=== PATIENT | female | born 1945 | race African-American/Black ===

== ENCOUNTER 2018-05-21 10:09 | Inpatient (IN) ==
[2018-05-21] MEDS ORDERED: PANTOPRAZOLE 40 MG VIAL IV STA (12:30)
[2018-05-21] MEDS ORDERED: HYDROmorphone 2 MG/1 ML VIAL IV STA (12:30)
[2018-05-21] MEDS ORDERED: ONDANSETRON 4 MG/2 ML VIAL IV STA (12:30)
[2018-05-21] MEDS ORDERED: SODIUM CHLORIDE 0.9% 500 ML IV STA ×2 (12:30→14:52)
[2018-05-21] MEDS ORDERED: ALUM/MAG/SIMETH/LIDO VISC 1:1 30 ML BOTTLE PO STA (12:30)
[2018-05-21 13:11] LABS: Basophils # 0.1 10*3/uL (0.0-0.2); Basophils % 0.6 % (0.0-0.8); Eosinophils # 0.2 10*3/uL (0.0-0.87); Hemoglobin 10.7 GM/DL (12.0-16.0); Immature Granulocytes % 1.3 %; Immature Granulocytes Absolute 0.11 #; Lymphocytes # 1.4 10*3/uL (1.4-4.0); Mean Corpuscular HGB Conc 30.6 GM/DL (32-36); Mean Corpuscular Hemoglobin 28 PG (27-34); Mean Corpuscular Volume 91.1 FL (87-102); Mean Platelet Volume 10.9 FL (9.6-12.0); Monocytes # 0.4 10*3/uL (0.11-0.8); Monocytes % 4.7 % (1.7-12.7); Neutrophils # 6.4 10*3/uL (1.4-7.4); Neutrophils % 75.4 % (38.7-73.9); Platelet Count 432 T/CUMM (130-400); Red Blood Count 3.84 MC/CUMM (3.8-5.5); Red Cell Distribution Width 16.2 % (9.3-17.3); White Blood Count 8.5 T/CUMM (4-12)
[2018-05-21 13:35] LABS: Alanine Aminotransferase 21 U/L (13-56); Albumin 2.6 G/DL (3.4-5.0); Alkaline Phosphatase 91 U/L (45-117); Amylase 72 U/L (25-115); Aspartate Amino Transferase 75 U/L (0-37); Bilirubin,Total < 0.39 MG/DL (0.2-1.0); Blood Urea Nitrogen 18 MG/DL (7-18); Calcium 9.2 MG/DL (8.5-10.1); Glucose 111 MG/DL (74-106); Osmolality,Calculated 277.7 MOS/KG (273-304); Potassium 4.1 MMOL/L (3.5-5.1); Sodium 138 MMOL/L (136-145); Total Protein 7.7 G/DL (6.4-8.3)
[2018-05-21 13:38] LABS: Lactic Acid 2.4 MMOL/L (0.4-2.0)
[2018-05-21] MEDS ORDERED: LACTULOSE 20 GM/30 ML UDCUP PO PRN (16:28)
[2018-05-21] MEDS ORDERED: SODIUM CHLORIDE 0.9% 1,000 ML IV ONE (16:31)
[2018-05-21] MEDS ORDERED: SODIUM PHOSPHATE ENEMA 133 ML BOTTLE RECTAL ONE (16:35)
[2018-05-21] MEDS ORDERED: GLUCAGON 1 MG VIAL IM PRN (16:36)
[2018-05-21] MEDS ORDERED: DEXTROSE 50% 25 GM/50 ML VIAL IV PRN (16:36)
[2018-05-21] MEDS ORDERED: SODIUM CHLORIDE 0.9% IV SCH (17:00)
[2018-05-21] MEDS ORDERED: GENTAMICIN IV SCH (17:00)
[2018-05-21 17:35] LABS: Apearance,Urine CLEAR (Clear); Bilirubin,Urine Negative (Negative); Blood, Urine Negative (Negative); Glucose,Urine (UA) Negative (Negative); Ketones,Urine Negative (Negative); Mucus,Urine Occasional /LPF (Occasional); Nitrite,Urine Negative (Negative); Protein,Urine Negative; RBC,Urine 1 /HPF (0-4); Squamous Epithelial Cell,Urine Occasional /HPF (0-10); Urine Color Yellow (Yellow); Urine Specific Gravity 1.042 (1.001-1.035); WBC,Urine 2 /HPF (0-6)
[2018-05-21 19:41] LABS: Lactic Acid 4.1 MMOL/L (0.4-2.0)
[2018-05-21] MEDS: VANCOMYCIN INJ 1,000 MG in SODIUM CHLORIDE 0.9% 250 ML IV SCH (20:27)
[2018-05-21] MEDS: metFORMIN 500 MG TABLET PO SCH (20:28)
[2018-05-21] MEDS: POLYETHYLENE GLYCOL POWDER 17 GM PACK PO SCH (20:28)
[2018-05-21] MEDS: DOCUSATE SODIUM 100 MG CAPSULE PO SCH (21:48)
[2018-05-21] MEDS: GENTAMICIN INJ 120 MG in PREMIX 1 EACH IV SCH (21:49)
[2018-05-21] MEDS: INSULIN REGULAR 100 UNIT/ML SUBCUT SCH (21:51)
[2018-05-22] MEDS: ONDANSETRON 4 MG/2 ML VIAL IV PRN ×2 (04:27→16:54)
[2018-05-22 04:53] LABS: Basophils % 0.4 % (0.0-0.8); Eosinophils # 0.1 10*3/uL (0.0-0.87); Eosinophils % 1.9 % (0.00-10.9); Hemoglobin 8.5 GM/DL (12.0-16.0); Immature Granulocytes % 1.5 %; Immature Granulocytes Absolute 0.11 #; Lymphocytes # 1.3 10*3/uL (1.4-4.0); Lymphocytes % 17.5 % (21.3-54.2); Mean Corpuscular HGB Conc 29.3 GM/DL (32-36); Mean Corpuscular Hemoglobin 27 PG (27-34); Mean Corpuscular Volume 92.4 FL (87-102); Mean Platelet Volume 10.8 FL (9.6-12.0); Monocytes # 0.5 10*3/uL (0.11-0.8); Monocytes % 6.5 % (1.7-12.7); Neutrophils # 5.5 10*3/uL (1.4-7.4); Neutrophils % 72.2 % (38.7-73.9); Platelet Count 395 T/CUMM (130-400); Red Blood Count 3.14 MC/CUMM (3.8-5.5); Red Cell Distribution Width 16.2 % (9.3-17.3); White Blood Count 7.5 T/CUMM (4-12)
[2018-05-22 05:07] LABS: Osmolality,Calculated 276.4 MOS/KG (273-304); Potassium 3.3 MMOL/L (3.5-5.1)
[2018-05-22 05:13] LABS: % Iron Saturation 17.5 % (18-50); Ferritin 667.1 ng/ml (8-252)
[2018-05-22 05:19] LABS: Thyroid Stimulating Hormone 1.33 uIU/ml (0.358-3.74)
[2018-05-22 05:20] LABS: Folate 4.7 NG/ML (5.4-24.0); Vitamin B12 489 PG/ML (211-911)
[2018-05-22] MEDS: VANCOMYCIN INJ 1,000 MG in SODIUM CHLORIDE 0.9% 250 ML IV SCH ×2 (05:43→18:48)
[2018-05-22 06:39] LABS: Sedimentation Rate-Westergren 114 MM/HR (0-30)
[2018-05-22] MEDS: SODIUM CHLORIDE 0.9% 1,000 ML IV SCH ×2 (07:11→09:58)
[2018-05-22 08:10] LABS: Cyclic Citrull Peptide Interp Positive
[2018-05-22] MEDS: INSULIN REGULAR 100 UNIT/ML SUBCUT SCH ×4 (08:49→21:11)
[2018-05-22] MEDS: GENTAMICIN INJ 120 MG in PREMIX 1 EACH IV SCH ×2 (09:01→21:02)
[2018-05-22] MEDS: POLYETHYLENE GLYCOL POWDER 17 GM PACK PO SCH (09:05)
[2018-05-22] MEDS: LISINOPRIL/HCTZ 20-12.5 MG TABLET PO SCH (09:10)
[2018-05-22] MEDS: PANTOPRAZOLE 40 MG TABLET PO SCH (09:10)
[2018-05-22] MEDS: DOCUSATE SODIUM 100 MG CAPSULE PO SCH ×2 (09:11→20:19)
[2018-05-22] MEDS: POTASSIUM CHLORIDE 20 MEQ TABLET PO PRN ×2 (09:11→14:41)
[2018-05-22] MEDS: metFORMIN 500 MG TABLET PO SCH ×2 (09:11→16:35)
[2018-05-22] MEDS: ACETAMINOPHEN 325 MG TABLET PO PRN ×2 (09:12→15:33)
[2018-05-22 10:46] LABS: Hemoglobin A1 (Alkaline) 97.4 % (96.5-98.5); Hemoglobin A2 (Alkaline) 2.6 % (1.5-3.5)
[2018-05-22] MEDS: FOLIC ACID 1 MG TABLET PO SCH (14:41)
[2018-05-23] MEDS: SODIUM CHLORIDE 0.9% 1,000 ML IV SCH ×2 (02:01→16:41)
[2018-05-23] MEDS: VANCOMYCIN INJ 1,000 MG in SODIUM CHLORIDE 0.9% 250 ML IV SCH (05:17)
[2018-05-23 05:31] LABS: Basophils # 0.1 10*3/uL (0.0-0.2); Basophils % 0.9 % (0.0-0.8); Eosinophils # 0.2 10*3/uL (0.0-0.87); Eosinophils % 3.5 % (0.00-10.9); Hematocrit 28.4 VOL% (35.7-47.0); Hemoglobin 8.4 GM/DL (12.0-16.0); Immature Granulocytes % 1.2 %; Immature Granulocytes Absolute 0.07 #; Lymphocytes # 1.2 10*3/uL (1.4-4.0); Lymphocytes % 20.9 % (21.3-54.2); Mean Corpuscular HGB Conc 29.6 GM/DL (32-36); Mean Corpuscular Hemoglobin 27 PG (27-34); Mean Corpuscular Volume 90.4 FL (87-102); Mean Platelet Volume 10.3 FL (9.6-12.0); Monocytes # 0.5 10*3/uL (0.11-0.8); Neutrophils # 3.8 10*3/uL (1.4-7.4); Neutrophils % 65.5 % (38.7-73.9); Platelet Count 349 T/CUMM (130-400); Red Blood Count 3.14 MC/CUMM (3.8-5.5); Red Cell Distribution Width 16.2 % (9.3-17.3); White Blood Count 5.7 T/CUMM (4-12)
[2018-05-23 05:59] LABS: Calcium 7.7 MG/DL (8.5-10.1); Osmolality,Calculated 279.1 MOS/KG (273-304)
[2018-05-23] MEDS: INSULIN REGULAR 100 UNIT/ML SUBCUT SCH ×4 (07:30→20:37)
[2018-05-23] MEDS: metFORMIN 500 MG TABLET PO SCH ×2 (08:05→16:49)
[2018-05-23] MEDS ORDERED: LIDOCAINE 100 MG/5 ML SYRINGE ONE (09:00)
[2018-05-23] MEDS ORDERED: PROPOFOL 200 MG/20 ML VIAL IV ONE (09:00)
[2018-05-23] MEDS ORDERED: BISACODYL 5 MG TABLET PO ONE (12:00)
[2018-05-23] MEDS: ONDANSETRON 4 MG/2 ML VIAL IV PRN ×2 (12:24→19:39)
[2018-05-23] MEDS ORDERED: POLYETHYLENE GLYCOL POWDER 255 GM BOTTLE PO ONE (13:00)
[2018-05-23] MEDS: LISINOPRIL/HCTZ 20-12.5 MG TABLET PO SCH (13:54)
[2018-05-23] MEDS: PANTOPRAZOLE 40 MG TABLET PO SCH (13:55)
[2018-05-23] MEDS: CHOLECALCIFEROL 1,000 UNIT TABLET PO SCH (13:55)
[2018-05-23] MEDS: DOCUSATE SODIUM 100 MG CAPSULE PO SCH ×2 (13:55→20:00)
[2018-05-23] MEDS: FOLIC ACID 1 MG TABLET PO SCH (13:55)
[2018-05-23] MEDS: POLYETHYLENE GLYCOL POWDER 17 GM PACK PO SCH (15:24)
[2018-05-23] MEDS ORDERED: MAGNESIUM CITRATE 300 ML BOTTLE PO ONE (21:00)
[2018-05-24 04:41] LABS: Basophils % 0.6 % (0.0-0.8); Eosinophils # 0.1 10*3/uL (0.0-0.87); Eosinophils % 2.2 % (0.00-10.9); Hemoglobin 8.3 GM/DL (12.0-16.0); Immature Granulocytes % 1.1 %; Immature Granulocytes Absolute 0.07 #; Lymphocytes # 1.3 10*3/uL (1.4-4.0); Mean Corpuscular HGB Conc 29.6 GM/DL (32-36); Mean Corpuscular Hemoglobin 27 PG (27-34); Mean Corpuscular Volume 90.6 FL (87-102); Mean Platelet Volume 11.1 FL (9.6-12.0); Monocytes # 0.5 10*3/uL (0.11-0.8); Monocytes % 8.7 % (1.7-12.7); Neutrophils # 4.1 10*3/uL (1.4-7.4); Neutrophils % 66.4 % (38.7-73.9); Platelet Count 364 T/CUMM (130-400); Red Blood Count 3.09 MC/CUMM (3.8-5.5); Red Cell Distribution Width 16.2 % (9.3-17.3); White Blood Count 6.2 T/CUMM (4-12)
[2018-05-24 04:51] LABS: INR 1.1; PT Patient Result 11.1 SECS
[2018-05-24 05:07] LABS: Calcium 8.1 MG/DL (8.5-10.1); Osmolality,Calculated 274.4 MOS/KG (273-304); Potassium 3.6 MMOL/L (3.5-5.1)
[2018-05-24] MEDS: SODIUM CHLORIDE 0.9% 1,000 ML IV SCH ×2 (05:52→18:27)
[2018-05-24] MEDS: INSULIN REGULAR 100 UNIT/ML SUBCUT SCH ×4 (07:56→20:34)
[2018-05-24] MEDS: FOLIC ACID 1 MG TABLET PO SCH (09:00)
[2018-05-24] MEDS: metFORMIN 500 MG TABLET PO SCH ×2 (09:00→17:25)
[2018-05-24] MEDS: PANTOPRAZOLE 40 MG TABLET PO SCH (09:00)
[2018-05-24] MEDS: POLYETHYLENE GLYCOL POWDER 17 GM PACK PO SCH (09:00)
[2018-05-24] MEDS: DOCUSATE SODIUM 100 MG CAPSULE PO SCH ×2 (09:00→20:50)
[2018-05-24] MEDS: CHOLECALCIFEROL 1,000 UNIT TABLET PO SCH (09:01)
[2018-05-24] MEDS: LISINOPRIL/HCTZ 20-12.5 MG TABLET PO SCH ×2 (10:27→10:37)
[2018-05-24] MEDS: ACETAMINOPHEN 325 MG TABLET PO PRN ×2 (10:27→15:13)
[2018-05-24] MEDS ORDERED: POLYETHYLENE GLYCOL POWDER 255 GM BOTTLE PO ONE (12:41)
[2018-05-24] MEDS ORDERED: BISACODYL 5 MG TABLET PO ONE (12:41)
[2018-05-24] MEDS: ONDANSETRON 4 MG/2 ML VIAL IV PRN (17:25)
[2018-05-25] MEDS: ONDANSETRON 4 MG/2 ML VIAL IV PRN ×3 (04:13→21:43)
[2018-05-25] MEDS: LISINOPRIL/HCTZ 20-12.5 MG TABLET PO SCH (08:00)
[2018-05-25] MEDS: metFORMIN 500 MG TABLET PO SCH ×2 (08:00→16:30)
[2018-05-25] MEDS: INSULIN REGULAR 100 UNIT/ML SUBCUT SCH ×4 (08:03→22:14)
[2018-05-25] MEDS: POLYETHYLENE GLYCOL POWDER 17 GM PACK PO SCH ×2 (08:29→21:43)
[2018-05-25] MEDS: DOCUSATE SODIUM 100 MG CAPSULE PO SCH ×2 (08:29→21:43)
[2018-05-25] MEDS: FOLIC ACID 1 MG TABLET PO SCH (08:29)
[2018-05-25] MEDS: CHOLECALCIFEROL 1,000 UNIT TABLET PO SCH (08:30)
[2018-05-25] MEDS: PANTOPRAZOLE 40 MG TABLET PO SCH (08:30)
[2018-05-25] MEDS ORDERED: LIDOCAINE 100 MG/5 ML SYRINGE ONE (09:00)
[2018-05-25] MEDS ORDERED: PROPOFOL 200 MG/20 ML VIAL IV ONE (09:00)
[2018-05-25] MEDS ORDERED: INFLUENZA VIRUS VACCINE 0.5 ML SYRINGE IM ONE (11:34)
[2018-05-25] MEDS: ACETAMINOPHEN 325 MG TABLET PO PRN (16:01)
[2018-05-25] MEDS ORDERED: SENNA 8.6 MG TABLET PO SCH (21:00)
[2018-05-25] MEDS ORDERED: DOCUSATE SODIUM 100 MG CAPSULE PO SCH (21:00)
[2018-05-26] MEDS: SODIUM CHLORIDE 0.9% 1,000 ML IV SCH ×2 (00:38→00:39)
[2018-05-26] MEDS: ACETAMINOPHEN 325 MG TABLET PO PRN ×3 (00:38→14:03)
[2018-05-26] MEDS: ONDANSETRON 4 MG/2 ML VIAL IV PRN (06:24)
[2018-05-26] MEDS ORDERED: predniSONE 10 MG TABLET PO SCH (09:00)
[2018-05-26] MEDS: INSULIN REGULAR 100 UNIT/ML SUBCUT SCH ×2 (09:17→13:00)
[2018-05-26] MEDS: POLYETHYLENE GLYCOL POWDER 17 GM PACK PO SCH (09:19)
[2018-05-26] MEDS: CHOLECALCIFEROL 1,000 UNIT TABLET PO SCH (09:19)
[2018-05-26] MEDS: LISINOPRIL/HCTZ 20-12.5 MG TABLET PO SCH (09:20)
[2018-05-26] MEDS: DOCUSATE SODIUM 100 MG CAPSULE PO SCH (09:20)
[2018-05-26] MEDS: PANTOPRAZOLE 40 MG TABLET PO SCH (09:20)
[2018-05-26] MEDS: metFORMIN 500 MG TABLET PO SCH (09:20)
[2018-05-26] MEDS: FOLIC ACID 1 MG TABLET PO SCH (09:20)
[2018-05-26 11:21] VITALS: BP 112/60
== END 2018-05-26 15:15 | disposition home or self-care (01) | DRG 392 ==
LOC: N.ED 10:09 → N.EDINP 16:28 → N.3E 16:49
PROVIDERS: ADMIT Hospitalist; ATTEND Hospitalist
PROC: COLONBX (2018-05-25 09:35)